=== PATIENT | female | born 1985 | race Caucasian/White ===

== ENCOUNTER 2017-02-06 00:08 | Emergency (ER) | payer OTHER ==
[2017-02-06 00:33] VITALS: BP 118/70; PULSE 70; TEMP 98.6; BMI 26.2
--- NOTE | 2017-02-06 01:25 | PDOC ---
History of Present Illness - General History Source: Patient Exam Limitations: No Limitations - History of Present Illness Initial Comments: 02/06/17 02:03 The patient is a 31 year old female, with a significant past medical history of asthma, who presents to the emergency department with pain behind the left since this yesterday. She states that she feels a bump on the back of her ear. She describes the pain as ranging from mild to moderate, without radiation or modifying factors. The patient denies chest pain, shortness of breath, headache and dizziness. Denies fever, chills, nausea, vomit, diarrhea and constipation. Allergies: Dairy and shellfish Past surgical history: None reported Social history: No alcohol, tobacco or drug use reported <Yoshi Cortes - Last Filed: 02/06/17 02:03> <Jocelyne John - Last Filed: 02/06/17 06:52> - General Chief Complaint: Pain Stated Complaint: EAR PAIN Time Seen by Provider: 02/06/17 01:11 Past History <Yoshi Cortes - Last Filed: 02/06/17 02:03> - Past Medical History Asthma: Yes Suicide Attempt (Hx): No - Family Disease History Family Disease History: Respiratory: Mother (asthma) - Immunization History Immunization Up to Date: Yes - Psycho/Social/Smoking Cessation Hx Anxiety: No Suicidal Ideation: No Smoking Status: No Smoking History: Never smoked Have you smoked in the past 12 months: No Number of Cigarettes Smoked Daily: 0 Information on smoking cessation initiated: No Hx Alcohol Use: No Drug/Substance Use Hx: No Substance Use Type: None <Jocelyne John - Last Filed: 02/06/17 06:52> - Past Medical History Allergies/Adverse Reactions: Allergies Allergy/AdvReac Type Severity Reaction Status Date / Time shellfish derived Allergy Intermediate Hives Verified 02/06/17 00:32 No Known Drug Allergies Allergy Verified 02/06/17 00:32 DAIRY Allergy Intermediate ANAPHYLATIC Uncoded 02/06/17 00:32 REACTION Home Medications: Ambulatory Orders Metoclopramide HCl [Reglan -] 10 mg PO QID #28 tablet 03/03/16 Review of Systems - Review of Systems Able to Perform ROS?: Yes Comments:: 02/06/17 02:03 GENERAL/CONSTITUTIONAL: No fever or chills. No weakness. HEAD, EYES, EARS, NOSE AND THROAT: (+) Bump behind the left ear. No change in vision. No ear discharge. No sore throat. CARDIOVASCULAR: No chest pain or shortness of breath RESPIRATORY: No cough, wheezing, or hemoptysis. GASTROINTESTINAL: No nausea, vomiting, diarrhea or constipation. GENITOURINARY: No dysuria, frequency, or change in urination. MUSCULOSKELETAL: No joint or muscle swelling or pain. No neck or back pain. SKIN: No rash NEUROLOGIC: No headache, vertigo, loss of consciousness, or change in strength/ sensation. ENDOCRINE: No increased thirst. No abnormal weight change HEMATOLOGIC/LYMPHATIC: No anemia, easy bleeding, or history of blood clots. ALLERGIC/IMMUNOLOGIC: No hives or skin allergy. <Yoshi Cortes - Last Filed: 02/06/17 02:03> *Physical Exam - Vital Signs Last Vital Signs Temp Pulse Resp BP Pulse Ox 98.6 F 70 20 118/70 100 02/06/17 00:32 02/06/17 00:32 02/06/17 00:32 02/06/17 00:32 02/06/17 00:32 - Physical Exam Comments: 02/06/17 02:04 GENERAL: Awake, alert, and fully oriented, in no acute distress HEAD: No signs of trauma, normocephalic, atraumatic EYES: PERRLA, EOMI, sclera anicteric, conjunctiva clear ENT: (+) Sebaceous cyst behind left ear, minimally mobile. Auricles normal inspection, hearing grossly normal, nares patent, oropharynx clear without exudates. Moist mucosa NECK: Normal ROM, supple, no lymphadenopathy, JVD, or masses EXTREMITIES: Normal inspection, Normal range of motion, no edema. No clubbing or cyanosis. NEUROLOGICAL: Cranial nerves II through XII grossly intact. Normal speech, normal gait, no focal sensorimotor deficits SKIN: Warm, Dry, normal turgor, no rashes or lesions noted. <Yoshi Cortes - Last Filed: 02/06/17 02:03> - Vital Signs Last Vital Signs Temp Pulse Resp BP Pulse Ox 98.6 F 70 20 118/70 100 02/06/17 00:32 02/06/17 00:32 02/06/17 00:32 02/06/17 00:32 02/06/17 00:32 <Jocelyne John - Last Filed: 02/06/17 06:52> Medical Decision Making - Medical Decision Making 02/06/17 06:50 Pt has a sebacious cyst behind her left ear and another smaller one in the hairline behind the 1st sebacious cyst. She was reassured and asked to follow with plastic surgeon for removal as needed. Rest of exam is normal and she is stable for discharge home. <Jocelyne John - Last Filed: 02/06/17 06:52> *DC/Admit/Observation/Transfer - Attestations Scribe Attestion: 02/06/17 02:04 Documentation prepared by Yoshi Cortes, acting as senior medical technologist for Jocelyne John MD <Yoshi Cortes - Last Filed: 02/06/17 02:03> - Discharge Dispostion Admit: No <Jocelyne John - Last Filed: 02/06/17 06:52> Diagnosis at time of Disposition: Sebaceous cyst, Mastoid pain - Discharge Dispostion Disposition: HOME Condition at time of disposition: Stable - Referrals Referrals: Cornelius Dietz MD [Primary Care Provider] - Jorge Taylor MD [Staff Physician] - David Carr MD [Staff Physician] - - Patient Instructions Printed Discharge Instructions: DI for Epidermal Cyst
[2017-02-06] MEDS ORDERED: IBUPROFEN 600 MG TABLET (FP) PO ONE ×2 (02:08→02:25)
== END 2017-02-06 02:40 | disposition home or self-care (01) ==
LOC: JER 00:08
DX: H92.09 Otalgia, unspecified ear (principal); L72.3 Sebaceous cyst
CPT/HCPCS: 99281-25